=== PATIENT | male | born 2000 | race Caucasian/White ===

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

== ENCOUNTER 2018-04-03 16:58 | Outpatient (CLI) | payer SELFPAY | END 2018-04-03 16:59 | disposition EMS.NT | LOC: EMS 16:58 | PROVIDERS: ATTEND Surgery | DX: R11.10 Vomiting, unspecified (principal); R25.9 Unspecified abnormal involuntary movements; R06.4 Hyperventilation; R20.2 Paresthesia of skin ==

== ENCOUNTER 2020-09-21 21:16 | Emergency (ER) | payer OTHER ==
[2020-09-21] MEDS ORDERED: oxyCODONE 5 MG TABLET PO STA (23:05)
[2020-09-21] MEDS ORDERED: KETOROLAC 30 MG/ML VIAL IM STA (23:06)
[2020-09-21] MEDS ORDERED: BACITRACIN ZINC OINT 1 PACKET TOP STA (23:07)
[2020-09-21] MEDS ORDERED: oxyCODONE/ACET 5/325 Prepack 4 PO STA (23:08)
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
[2020-09-21 23:18] VITALS: BP 158/133
== END 2020-09-21 23:40 | disposition home or self-care (01) ==
LOC: ED 21:16
DX: T25.412A Corrosion of unspecified degree of left ankle, initial encounter (principal); T24.431A Corrosion of unspecified degree of right lower leg, initial encounter; T24.001A Burn of unspecified degree of unspecified site of right lower limb, except ankle and foot, initial encounter; T31.0 Burns involving less than 10% of body surface; T32.0 Corrosions involving less than 10% of body surface; Y93.G3 Activity, cooking and baking
CPT/HCPCS: 1040M; 99281; 99282; A9270

== ENCOUNTER 2020-11-17 12:31 | Emergency (ER) | payer SELFPAY ==
[2020-11-17 12:43] VITALS: BP 136/79
== END 2020-11-17 14:58 | disposition left against medical advice (07) ==
LOC: ED 12:31
DX: Z53.21 Procedure and treatment not carried out due to patient leaving prior to being seen by health care provider (principal)

== ENCOUNTER 2021-05-12 17:54 | Emergency (ER) | payer BC, MEDICAID ==
[2021-05-12] MEDS ORDERED: OLANZapine ODT 5 MG TABLET TL STA (19:04)
[2021-05-12] MEDS ORDERED: LORazepam 1 MG TABLET PO STA (19:04)
--- NOTE | 2021-05-12 19:04 | ED Physician Documentation ---
PD HPI MHE - Stated complaint Stated Complaint: MANIC/SI - Chief complaint Chief Complaint: MHE - History obtained from History obtained from: Patient - Additional information Additional information: 20-year-old gentleman presents thinking he has bipolar disorder and wanting medications for this. He voices no other issues. That said his stepfather notes that he tried to commit suicide today by drinking Windex improperly throwing it all up at approximately 11 AM. Patient states he is not currently suicidal but is clearly minimizing his complaints. He refuses blood work. Review of Systems Ten Systems: 10 systems reviewed and negative Constitutional: reports: Reviewed and negative Cardiac: reports: Reviewed and negative Respiratory: reports: Reviewed and negative PD PAST MEDICAL HISTORY - Past Medical History Past Medical History: Yes Cardiovascular: None Respiratory: None Neuro: None Endocrine/Autoimmune: None GI: None : None HEENT: None Psych: Depression Musculoskeletal: None Derm: None - Past Surgical History Past Surgical History: No - Present Medications Home Medications: Ambulatory Orders Medication Instructions Recorded Confirmed No Known Home Medications 05/12/21 05/12/21 - Allergies Allergies/Adverse Reactions: Allergies Allergy/AdvReac Type Severity Reaction Status Date / Time No Known Drug Allergies Allergy Verified 11/17/20 12:43 - Social History Does the pt smoke?: No Smoking Status: Never smoker Does the pt drink ETOH?: Yes Does the pt have substance abuse?: Yes Substance Use and Type: Marijuana - Immunizations Immunizations are current?: Yes Immunizations: No immun - POLST Patient has POLST: No PD ED PE NORMAL - Vitals Vital signs reviewed: Yes - General General: Alert and oriented X 3, Other (He is manic but cooperative but refuses blood work. Mildly disheveled) - HEENT HEENT: PERRL, EOMI - Neck Neck: Supple, no meningeal sign, No bony TTP - Cardiac Cardiac: RRR, No murmur - Respiratory Respiratory: No respiratory distress, Clear bilaterally - Abdomen Abdomen: Normal bowel sounds, Non tender - Back Back: No CVA TTP, No spinal TTP - Derm Derm: Normal color, Warm and dry - Extremities Extremities: No edema, No calf tenderness / cord - Neuro Neuro: Alert and oriented X 3, No motor deficit, No sensory deficit, Normal speech Results - Vitals Vitals: Vital Signs - 24 hr 05/12/21 05/12/21 05/12/21 18:02 18:31 23:20 Temperature 36.2 C L 37.1 C Heart Rate 92 96 70 Respiratory 18 18 15 Rate Blood Pressure 139/79 H 138/87 H 100/60 O2 Saturation 97 97 96 05/13/21 05/13/21 07:00 15:04 Temperature 37 C Heart Rate 62 67 Respiratory 15 18 Rate Blood Pressure 104/62 128/68 O2 Saturation 97 99 Oxygen O2 Source Room air - Labs Labs: Laboratory Tests 05/12/21 05/12/21 05/12/21 19:20 20:00 20:00 WBC 6.3 RBC 4.98 Hgb 15.7 Hct 45.9 MCV 92.2 MCH 31.5 H MCHC 34.2 RDW 12.7 Plt Count 317 MPV 9.0 Neut # (Auto) 3.0 Lymph # (Auto) 2.5 [place] # (Auto) 0.7 Eos # (Auto) 0.0 Baso # (Auto) 0.0 Absolute Nucleated RBC 0.00 Nucleated RBC % 0.0 Sodium 140 Potassium 3.6 Chloride 102 Carbon Dioxide 26 Anion Gap 12.0 BUN 6 Creatinine 0.8 Estimated GFR (MDRD) 121 Glucose 113 H Calcium 8.5 Total Bilirubin 0.4 AST 103 H ALT 178 H Alkaline Phosphatase 60 Total Protein 7.7 Albumin 4.8 Globulin 2.9 Albumin/Globulin Ratio 1.7 Lipase 54 H TSH Urine Color Urine Clarity Urine pH Ur Specific [place] Urine Protein Urine Glucose (UA) Urine Ketones Urine Occult Blood Urine Nitrite Urine Bilirubin Urine Urobilinogen Ur Leukocyte Esterase Ur Microscopic Review Urine Culture Comments Salicylates < 6.0 Urine Opiates Screen Ur Oxycodone Screen Urine Methadone Screen Ur Propoxyphene Screen Acetaminophen < 10 L Ur Barbiturates Screen Ur Tricyclics Screen Ur Phencyclidine Scrn Ur Amphetamine Screen U Methamphetamines Scrn U Benzodiazepines Scrn Urine Cocaine Screen U Cannabinoids Screen Ethyl Alcohol 273.1 SARS-CoV-2 (PCR) NOT DETECTED 05/12/21 05/12/21 05/13/21 20:00 21:34 06:11 WBC RBC Hgb Hct MCV MCH MCHC RDW Plt Count MPV Neut # (Auto) Lymph # (Auto) [place] # (Auto) Eos # (Auto) Baso # (Auto) Absolute Nucleated RBC Nucleated RBC % Sodium 140 Potassium 3.6 Chloride 103 Carbon Dioxide 26 Anion Gap 11.0 BUN 11 Creatinine 0.8 Estimated GFR (MDRD) 121 Glucose 90 Calcium 8.6 Total Bilirubin 0.8 AST 87 H ALT 164 H Alkaline Phosphatase 53 Total Protein 7.0 Albumin 4.2 Globulin 2.8 Albumin/Globulin Ratio 1.5 Lipase TSH 0.61 Urine Color YELLOW Urine Clarity CLEAR Urine pH 6.5 Ur Specific [place] 1.010 Urine Protein NEGATIVE Urine Glucose (UA) NEGATIVE Urine Ketones NEGATIVE Urine Occult Blood NEGATIVE Urine Nitrite NEGATIVE Urine Bilirubin NEGATIVE Urine Urobilinogen 0.2 (NORMAL) Ur Leukocyte Esterase NEGATIVE Ur Microscopic Review NOT INDICATED Urine Culture Comments NOT INDICATED Salicylates Urine Opiates Screen NEGATIVE Ur Oxycodone Screen NEGATIVE Urine Methadone Screen NEGATIVE Ur Propoxyphene Screen NEGATIVE Acetaminophen Ur Barbiturates Screen NEGATIVE Ur Tricyclics Screen NEGATIVE Ur Phencyclidine Scrn NEGATIVE Ur Amphetamine Screen NEGATIVE U Methamphetamines Scrn NEGATIVE U Benzodiazepines Scrn NEGATIVE Urine Cocaine Screen NEGATIVE U Cannabinoids Screen POSITIVE H Ethyl Alcohol 80.5 SARS-CoV-2 (PCR) PD MEDICAL DECISION MAKING - ED course ED course: 20-year-old gentleman who thinks he might have bipolar disorder although never formally diagnosed. Had a suicide attempt this morning but denies current suicidality but parents are quite worried about him. He did not want to be hospitalized, but I did not think any other disposition was appropriate based on his presenting complaint. He initially refused labs and stated he had no other substance issues and does not drink alcohol. As such the DCR was dispatched as he was seemingly medically clear. Later he did submit to lab work and it was notable for elevated blood alcohol level. Care to the overnight ED physician at shift change pending sobriety. Back on my care at noon on May 13. Stable through my shift although with a lot of anxiety. Seen by the DCR and a bed was arranged at [facility]. He is stable for transport. He is going involuntarily. Departure - Departure Disposition: 02 Transfer Acute Care Hosp Clinical Impression: Suicide attempt Condition: Stable
[2021-05-12 20:06] LABS: BASOPHILS % (AUTO) 0.6 %; EOSINOPHILS % (AUTO) 0.6 %; HCT - HEMATOCRIT 45.9 % (42.0-52.0); HGB - HEMOGLOBIN 15.7 g/dL (14.0-18.0); LYMPHOCYTES # (AUTO) 2.5 10^3/uL (1.5-3.5); LYMPHOCYTES % (AUTO) 40.3 %; MEAN CORPUSCULAR HEMOGLOBIN 31.5 pg (27.0-31.0); MEAN CORPUSCULAR HGB CONC 34.2 g/dL (32.0-36.0); MEAN CORPUSCULAR VOLUME 92.2 fL (80.0-94.0); MONOCYTES # (AUTO) 0.7 10^3/uL (0.0-1.0); MONOCYTES % (AUTO) 10.8 %; NEUTROPHILS % (AUTO) 47.2 %; PLT - PLATELET COUNT 317 10^3/uL (130-450); RED BLOOD COUNT 4.98 10^6/uL (4.70-6.10); RED CELL DISTRIBUTION WIDTH 12.7 % (12.0-15.0); WHITE BLOOD COUNT 6.3 x10^3/uL (4.8-10.8)
[2021-05-12 20:21] LABS: ACETAMINOPHEN < 10 ug/mL (10-30); ALBUMIN 4.8 g/dL (3.2-5.5); ALBUMIN/GLOBULIN RATIO 1.7 (1.0-2.2); ALKALINE PHOSPHATASE 60 IU/L (42-121); ALT ALANINE AMINOTRANSFERASE 178 IU/L (10-60); AST ASPARTATE AMINOTRANSFERASE 103 IU/L (10-42); BILIRUBIN,TOTAL 0.4 mg/dL (0.2-1.0); BUN - BLOOD UREA NITROGEN 6 mg/dL (6-20); CALCIUM 8.5 mg/dL (8.5-10.3); CARBON DIOXIDE - CO2 26 mmol/L (21-32); CHLORIDE 102 mmol/L (101-111); CREATININE 0.8 mg/dL (0.6-1.2); ETOH - ETHANOL 273.1 mg/dL; GFR - MDRD 121 (>89); GLUCOSE 113 mg/dL (70-100); LIPASE 54 U/L (22-51); POTASSIUM 3.6 mmol/L (3.5-5.0); SALICYLATE < 6.0 mg/dL; SODIUM 140 mmol/L (135-145); TOTAL PROTEIN 7.7 g/dL (6.7-8.2)
[2021-05-12 21:43] LABS: MUDS CUTOFF CONCENTRATIONS CUTOFF CONC BELOW:
[2021-05-12 21:47] LABS: BILIRUBIN,URINE NEGATIVE (NEGATIVE); GLUCOSE, URINE (UA) NEGATIVE (NEGATIVE); KETONES,URINE (UA) NEGATIVE (NEGATIVE); LEUKOCYTE ESTERASE, URINE NEGATIVE (NEGATIVE); NITRITE,URINE NEGATIVE (NEGATIVE); OCCULT BLOOD,URINE NEGATIVE (NEGATIVE); PH,URINE 6.5 PH (5.0-7.5); PROTEIN,URINE NEGATIVE (NEGATIVE); UROBILINOGEN,URINE 0.2 (NORMAL) E.U./dL (NORMAL)
[2021-05-12 21:48] LABS: CLARITY,URINE CLEAR (CLEAR)
--- NOTE | 2021-05-12 21:49 | ED Physician Documentation ---
ED Addendum - Addendum Addendum: 05/13/21 06:30 Patient received a signout from outgoing physician, please see their do cumentation for further detail. Patient was monitored carefully throughout the entirety of my shift. Was evaluated multiple occasions and found to be resting comfortably and in no acute distress. A.m. labs were obtained which demonstrated a significant improvement of the patient's blood ethanol. Most recent alcohol now 80. I did have a discussion with the on-call DCR agent prior to the patient's a.m. labs resulting. At this time they are asking that we either have in-house social work evaluate the patient or ask for That we call them for redispatch once the patient has an undetectable ethanol level.I will be signing the patient out to the oncoming physician, please see their documentation for further detail.
[2021-05-12 21:58] LABS: AMPHETAMINE SCREEN,URINE NEGATIVE (NEGATIVE); BARBITURATE SCREEN,UR NEGATIVE (NEGATIVE); BENZODIAZEPINES SCREEN, URINE NEGATIVE (NEGATIVE); COCAINE SCREEN URINE NEGATIVE (NEGATIVE); METHADONE SCREEN, URINE NEGATIVE (NEGATIVE); METHAMPHETAMINES SCREEN, URINE NEGATIVE (NEGATIVE); OPIATE SCREEN, URINE NEGATIVE (NEGATIVE); OXYCODONE SCREEN, URINE NEGATIVE (NEGATIVE); PROPOXYPHENE SCREEN, URINE NEGATIVE (NEGATIVE); THC CANNABINOID SCREEN, URINE POSITIVE (NEGATIVE); TRICYCLIC ANTIDEPRESSANT,URINE NEGATIVE (NEGATIVE)
[2021-05-13 06:27] LABS: ALBUMIN 4.2 g/dL (3.2-5.5); ALBUMIN/GLOBULIN RATIO 1.5 (1.0-2.2); BILIRUBIN,TOTAL 0.8 mg/dL (0.2-1.0); CALCIUM 8.6 mg/dL (8.5-10.3); CREATININE 0.8 mg/dL (0.6-1.2); ETOH - ETHANOL 80.5 mg/dL; POTASSIUM 3.6 mmol/L (3.5-5.0)
[2021-05-13] MEDS ORDERED: LORazepam 1 MG TABLET PO STA ×2 (14:35→18:21)
[2021-05-13 15:06] VITALS: BP 128/68
[2021-05-13] MEDS ORDERED: KETAMINE 500 MG/10 ML VIAL IM STA (16:31)
[2021-05-13] MEDS ORDERED: OLANZapine 10 MG VIAL IM STA (16:31)
== END 2021-05-13 19:29 | disposition short-term general hospital (02) ==
LOC: ED 17:54
DX: T65.892A Toxic effect of other specified substances, intentional self-harm, initial encounter (principal); Z20.822 Contact with and (suspected) exposure to COVID-19
CPT/HCPCS: 36415; 80053; 80306; 80307; 80320; 80329; 81003; 83690; 84443; 85025; 87635; 99283; 99285; A9270; J8499; 81001; 87086

== ENCOUNTER 2021-10-15 18:02 | Emergency (ER) | payer OTHER, BC ==
[2021-10-15 18:18] VITALS: BP 150/95
--- NOTE | 2021-10-15 18:20 | ED Physician Documentation ---
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 He is up-to-date on tetanus. There was a lot of blood but it seems to have stopped.) PD PAST MEDICAL HISTORY - Past Medical History Cardiovascular: None Respiratory: None Neuro: None Endocrine/Autoimmune: None GI: None : None HEENT: None Psych: Depression Musculoskeletal: None Derm: None - Past Surgical History Past Surgical History: No - Present Medications Home Medications: Ambulatory Orders Medication Instructions Recorded Confirmed No Known Home Medications 05/12/21 05/12/21 - Allergies Allergies/Adverse Reactions: Allergies Allergy/AdvReac Type Severity Reaction Status Date / Time No Known Drug Allergies Allergy Verified 11/17/20 12:43 - Social History Does the pt smoke?: No Smoking Status: Never smoker Does the pt drink ETOH?: Yes Does the pt have substance abuse?: Yes - Immunizations Immunizations are current?: Yes Immunizations: No immun - POLST Patient has POLST: No PD ED PE NORMAL - General General: Alert and oriented X 3, No acute distress - Extremities Extremities: Other (There is a slightly greater than 1 cm laceration on the pulp of the right index finger without distal neurovascular compromise.) - Neuro Neuro: Alert and oriented X 3, Normal speech Results - Vitals Vitals: Vital Signs - 24 hr 10/15/21 18:14 Temperature 37.5 C Heart Rate 135 H Respiratory 18 Rate Blood Pressure 150/95 H O2 Saturation 99 Oxygen O2 Source Room air Procedures - Laceration (location) R index finger Length in cm: 1 Wound type: Linear, Clean Tendon involvement: Tendon intact Wound preparation: Irrigated copiously NS Skin layer closure: Dermabond Other: Patient tolerated well, No complications, Neurovascular intact, Tetanus UTD Right index finger Length in cm: 1 Wound type: Clean Neurovascular status: Sensory intact, Motor intact, Vascular intact Anesthesia: Lidocaine 1% Wound preparation: Irrigated copiously NS, Other (The previously placed Dermabond was removed, and a digital block was done with excellent anesthesia and sutures were placed.) Skin layer closure: Nylon, Interrupted, Size #-0 - enter number ([phone]), Sutures - enter # (5) Other: Tetanus UTD PD MEDICAL DECISION MAKING - ED course ED course: I recommended digital block and suturing for this laceration. 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 As such Dermabond was placed, he understands that this is not ideal for this location. That said he declined suturing. However subsequently prior to discharge he thought better of it. There was much [id number] but eventually he decided he should be sutured. Departure - Departure Disposition: 01 Home, Self Care Clinical Impression: Laceration of right index finger Qualifiers: Encounter type: initial encounter Damage to nail status: without damage Foreign body presence: without foreign body Qualified Code(s): S61.210A - Laceration without foreign body of right index finger without damage to nail, initial encounter Condition: Good Record reviewed to determine appropriate education?: Yes Instructions: ED Laceration Ext Sutr Stap Tape Comments: Come back for any signs of infection which would include: Redness, swelling, drainage, increased pain, or fevers. You can wash it soap and water. Keep it covered and moist with bacitracin ointment which is available over the counter; avoid neosporin. Follow-up with your physician in about 14 days for suture removal.
== END 2021-10-15 19:21 | disposition home or self-care (01) ==
LOC: ED 18:02
DX: S61.210A Laceration without foreign body of right index finger without damage to nail, initial encounter (principal); W26.0XXA Contact with knife, initial encounter; Y92.511 Restaurant or cafe as the place of occurrence of the external cause; Y99.0 Civilian activity done for income or pay
CPT/HCPCS: 1040M; 12001; 99281

== ENCOUNTER 2022-11-25 15:13 | Emergency (ER) | payer BC ==
[2022-11-25 15:47] LABS: BASOPHILS % (AUTO) 0.3 %; EOSINOPHILS % (AUTO) 0.1 %; HCT - HEMATOCRIT 46.7 % (42.0-52.0); LYMPHOCYTES # (AUTO) 0.7 10^3/uL (1.5-3.5); LYMPHOCYTES % (AUTO) 5.3 %; MEAN CORPUSCULAR HEMOGLOBIN 30.4 pg (27.0-31.0); MEAN CORPUSCULAR HGB CONC 34.3 g/dL (32.0-36.0); MEAN CORPUSCULAR VOLUME 88.8 fL (80.0-94.0); MEAN PLATELET VOLUME 8.8 fL (7.4-11.4); MONOCYTES # (AUTO) 0.7 10^3/uL (0.0-1.0); MONOCYTES % (AUTO) 6.1 %; NEUTROPHILS # (AUTO) 10.7 10^3/uL (1.5-6.6); NEUTROPHILS % (AUTO) 87.7 %; PLT - PLATELET COUNT 372 10^3/uL (130-450); RED BLOOD COUNT 5.26 10^6/uL (4.70-6.10); RED CELL DISTRIBUTION WIDTH 12.4 % (12.0-15.0); WHITE BLOOD COUNT 12.2 x10^3/uL (4.8-10.8)
[2022-11-25 16:13] LABS: ALBUMIN 4.8 g/dL (3.2-5.5); ALBUMIN/GLOBULIN RATIO 1.7 (1.0-2.2); ALKALINE PHOSPHATASE 111 IU/L (42-121); ALT ALANINE AMINOTRANSFERASE 69 IU/L (10-60); AST ASPARTATE AMINOTRANSFERASE 66 IU/L (10-42); BILIRUBIN,TOTAL 1.1 mg/dL (0.2-1.0); BUN - BLOOD UREA NITROGEN 13 mg/dL (6-20); CALCIUM 9.9 mg/dL (8.5-10.3); CARBON DIOXIDE - CO2 30 mmol/L (21-32); CHLORIDE 97 mmol/L (101-111); CREATININE 0.7 mg/dL (0.6-1.3); ETOH - ETHANOL < 10.0 mg/dL; GFR - MDRD 139 (>89); GLUCOSE 158 mg/dL (74-104); LIPASE 19 U/L (11-82); POTASSIUM 3.5 mmol/L (3.5-4.5); SODIUM 140 mmol/L (135-145); TOTAL PROTEIN 7.7 g/dL (6.4-8.9)
[2022-11-25 16:20] LABS: ACETAMINOPHEN < 0.1 ug/mL; SALICYLATE < 1.5 mg/dL
[2022-11-25] MEDS ORDERED: SODIUM CHLORIDE 0.9% 1,000 ML IV STA (16:21)
[2022-11-25] MEDS ORDERED: LORazepam 2 MG/ML VIAL IVP STA (16:21)
--- NOTE | 2022-11-25 16:26 | ED Physician Documentation ---
History of Present Illness - Stated complaint Stated Complaint: NUMB,VOMIT,SHAKING - Chief complaint Chief Complaint: Abd Pain - History obtained from History obtained from: Patient - History of Present Illness Timing: Yesterday Pain level max: 4 Pain level now: 4 - Additonal information Additional information: Patient is a 22-year-old male who presents to the emergency department complaining of nausea, vomiting and "shakiness". He spent the last 7 days in [place]. Returned home yesterday. He states that he has been drinking heavily daily, when asked how much he drank he said "enough to blackout". He had diffuse abdominal cramping, no blood in the vomit. No diarrhea. No fevers. No chills. He states he was also using tramadol when he was in [place]. 200 mg by mouth daily for 3 to 4 days. He denies being on any other medications. Uses marijuana as well. Denies any other drug use. No chest pain. No shortness of breath. No headache. Review of Systems Constitutional: denies: Fever, Chills Nose: denies: Rhinorrhea / runny nose, Congestion Respiratory: denies: Dyspnea, Cough GI: reports: Nausea, Vomiting. denies: Diarrhea, Hematemesis, Bloody / black stool : denies: Dysuria, Frequency, Hesitancy Skin: denies: Rash Musculoskeletal: denies: Neck pain, Back pain Neurologic: denies: Headache PD PAST MEDICAL HISTORY - Past Medical History Cardiovascular: None Respiratory: None Neuro: None Endocrine/Autoimmune: None GI: None : None HEENT: None Psych: Depression Musculoskeletal: None Derm: None - Past Surgical History Past Surgical History: No - Present Medications Home Medications: Ambulatory Orders Medication Instructions Recorded Confirmed Ondansetron Odt [Zofran] 4 mg TL Q6H PRN #10 tablet 11/25/22 chlordiazePOXIDE [Librium] 25 mg PO Q6H #7 cap 11/25/22 - Allergies Allergies/Adverse Reactions: Allergies Allergy/AdvReac Type Severity Reaction Status Date / Time No Known Drug Allergies Allergy Verified 11/17/20 12:43 - Social History Does the pt smoke?: No Smoking Status: Never smoker Does the pt drink ETOH?: Yes Does the pt have substance abuse?: Yes - Immunizations Immunizations are current?: Yes Immunizations: No immun - POLST Patient has POLST: No PD ED PE NORMAL - Vitals Vital signs reviewed: Yes - General General: Alert and oriented X 3, No acute distress - HEENT HEENT: PERRL, Moist mucous membranes - Neck Neck: Supple, no meningeal sign - Cardiac Cardiac: RRR, No murmur, Strong equal pulses - Respiratory Respiratory: No respiratory distress, Clear bilaterally - Abdomen Abdomen: Soft, Non tender, Non distended - Back Back: No CVA TTP, No spinal TTP - Derm Derm: Warm and dry, No rash - Extremities Extremities: No edema, No calf tenderness / cord - Neuro Neuro: Alert and oriented X 3, personal financial advisor 2-12 intact, No motor deficit, No sensory deficit, Normal speech Eye Opening: Spontaneous Motor: Obeys Commands Verbal: Oriented GCS Score: 15 - Psych Psych: Normal mood, Normal affect Results - Vitals Vitals: Vital Signs - 24 hr 11/25/22 11/25/22 11/25/22 15:20 16:16 16:21 Temperature 36.3 C L Heart Rate 95 94 Respiratory 18 19 17 Rate Blood Pressure 170/109 H 162/95 H O2 Saturation 95 95 11/25/22 11/25/22 17:18 18:11 Temperature 36.3 C L Heart Rate 84 94 Respiratory 16 16 Rate Blood Pressure 145/96 H 134/84 H O2 Saturation 96 99 Oxygen O2 Source Room air - Labs Labs: Laboratory Tests 11/25/22 11/25/22 15:41 15:41 WBC 12.2 H RBC 5.26 Hgb 16.0 Hct 46.7 MCV 88.8 MCH 30.4 MCHC 34.3 RDW 12.4 Plt Count 372 MPV 8.8 Neut # (Auto) 10.7 H Lymph # (Auto) 0.7 L [place] # (Auto) 0.7 Eos # (Auto) 0.0 Baso # (Auto) 0.0 Absolute Nucleated RBC 0.00 Nucleated RBC % 0.0 Sodium 140 Potassium 3.5 Chloride 97 L Carbon Dioxide 30 Anion Gap 13.0 BUN 13 Creatinine 0.7 Estimated GFR (MDRD) 139 Glucose 158 H Calcium 9.9 Total Bilirubin 1.1 H AST 66 H ALT 69 H Alkaline Phosphatase 111 Total Protein 7.7 Albumin 4.8 Globulin 2.9 Albumin/Globulin Ratio 1.7 Lipase 19 Salicylates < 1.5 Acetaminophen < 0.1 Ethyl Alcohol < 10.0 PD Medical Decision Making - ED course Complexity details: reviewed results, re-evaluated patient, considered differential, d/w patient ED course: Patient is well-appearing, nontoxic. Afebrile. Feels much better after IV fluids, Zofran and Ativan. Symptoms resolved. Will prescribe a small amount of Zofran and Librium for home. No significant lab abnormalities. Patient does not want to go to detox or rehab. Abdomen is soft, nontender nondistended on serial exam. Tolerating p.o. without difficulty. Patient counseled regarding signs and symptoms for which I believe and urgent re-evaluation would be necessary. Patient with good understanding of and agreement to plan and is comfortable going home at this time This document was made in part using voice recognition software. While efforts are made to proofread this document, sound alike and grammatical errors may occur. Departure - Departure Disposition: 01 Home, Self Care Clinical Impression: Alcohol withdrawal Qualifiers: Complication of substance-induced condition: uncomplicated Qualified Code(s): F10.930 - Alcohol use, unspecified with withdrawal, uncomplicated Condition: Good Instructions: ED Withdrawal Alcohol Follow-Up: your,doctor in 1 week [Other] Prescriptions: chlordiazePOXIDE [Librium] 25 mg PO Q6H #7 cap Ondansetron Odt [Zofran] 4 mg TL Q6H PRN #10 tablet PRN Reason: Nausea / Vomiting Comments: Your prescriptions were sent to [facility] in [place]. Please follow-up with your doctor for further care. Please drink plenty of water. Refrain from alcohol usage and other drugs. Contact: [address] [address] Fax: Forms: PCP List Discharge Date/Time: 11/25/22 18:13
[2022-11-25 18:18] VITALS: BP 134/84; O2SAT 99
== END 2022-11-25 18:13 | disposition home or self-care (01) ==
LOC: ED 15:13
DX: F10.930 Alcohol use, unspecified with withdrawal, uncomplicated (principal)
CPT/HCPCS: 36415; 80053; 80307; 80320; 80329; 83690; 85025; 96374; 99283; J2060; 80306